=== PATIENT | male | born 1965 | race Caucasian/White ===

== ENCOUNTER → 2018-08-27 | Outpatient (CLI) | payer OTHER ==
[~2018-08-27] MED LIST: BARIUM SUSPENSION 105% (LIQUID POLIBAR PLUS) 240 ML/DOSE PO ONE; BARIUM SUSPENSION 60% (LIQUID EZ PAQUE) 240 ML DOSE PO ONE; HYDR50CA3 PO; METH4TAB PO
--- NOTE | 2018-08-27 12:45 | Diagnostic Imaging Report ---
INDICATION: Choking episodes and dysphagia. FINDINGS: Patient ingested effervescent crystals as well as thin and thick barium and imaging of the esophagus was performed. A total of 1 minute 41 seconds of fluoroscopy was utilized. The preliminary radiograph over the chest is unremarkable. The esophagus has a smooth contour. No mass or stricture is identified. No gastroesophageal reflux or hiatal hernia was demonstrated. Images of the stomach are unremarkable. IMPRESSION: Unremarkable esophagram. Dictated by: Dictated on workstation # [id number]
== END ==
LOC: RAD 10:47
PROVIDERS: ATTEND Nurse Practitioner Community Health
DX: R06.89 Other abnormalities of breathing (principal); R13.14 Dysphagia, pharyngoesophageal phase
CPT/HCPCS: 74220